=== PATIENT | female | born 1960 | race Caucasian/White ===

== ENCOUNTER 2019-08-15 11:27 | Inpatient (IN) | payer BC ==
[2019-08-15] MEDS ORDERED: NA CHLORIDE 0.9% 1,000 ML ONE ×2 (11:58→13:10)
[2019-08-15 12:44] LABS: Protime INR 1.22
--- NOTE | 2019-08-15 12:44 | RAD REPORT ---
EXAM DESCRIPTION: RAD - Chest Single View - 08/15/2019 12:31 pm CLINICAL HISTORY: COUGH Chest pain. COMPARISON: Chest Pa And Lat (2 Views) dated 08/11/2019 FINDINGS: Portable technique limits examination quality. The patient's known right middle lobe pneumonia shows fractional improvement since the prior study. H owever, there appears to be slight increased infiltrate in the left lung base on today's study relati ve to the prior exam. The heart is normal in size. No displaced fractures.
[2019-08-15 12:45] LABS: Absolute Lymphocytes (CBC) 1.5 K/uL (0.7-4.9); Basophils % 0.8 % (0-1.3); Hematocrit 36.4 % (36.0-45.0); Lymphocytes % 14.1 % (15.3-44.8); MPV 8.4 fL (7.6-11.3); RBC Red Blood Cell Count 3.97 M/uL (3.86-4.86)
[2019-08-15 13:06] LABS: ALT/SGPT 13 U/L (12-78); AST/SGOT 10 U/L (15-37); Albumin 2.8 g/dL (3.4-5.0); Alkaline Phosphatase 98 U/L (45-117); BUN Blood Urea Nitrogen 7 mg/dL (7-18); Bicarbonate 26 mmol/L (21-32); Bilirubin Direct 0.2 mg/dL (0-0.2); Bilirubin Total 0.4 mg/dL (0.2-1.0); Glucose Level 102 mg/dL (74-106); Lipase 243 U/L (73-393); Magnesium 2.2 mg/dL (1.8-2.4); NT PRO-BNP 746 pg/mL (<125); Potassium 3.4 mmol/L (3.5-5.1); Protein, Total 7.1 g/dL (6.4-8.2); Sodium Level 142 mmol/L (136-145); Troponin (Emerg Dept Use Only) < 0.02 ng/mL (0.0-0.045)
[2019-08-15] MEDS ORDERED: HYDROCODONE/CHLORPHEN 5 ML/OSYR ONE (13:09)
[2019-08-15] MEDS ORDERED: PIPER/TAZO/NS 3.375gm 3.375 GM/100 ML BAG ONE (13:10)
--- NOTE | 2019-08-15 13:13 | EDPHYS ---
Physician Documentation [facility] Name: Tamiko Conley Age: 58 yrs Sex: Female : 1960 Arrival Date: 08/15/2019 Time: : Bed 20 Private MD: Mp Pittman B ED Physician Kamari Joe HPI: 08/15 13:03 This 58 yrs old Female presents to ER via Ambulatory with complaints of jaylene Fever, Cough. 13:03 The patient reports fever, that was measured at 100 degrees Fahrenheit. Onset: The jaylene symptoms/episode began/occurred 5 day(s) ago. Modifying factors: there are no obvious modifying factors. Associated signs and symptoms: Pertinent positives: chills, cough, runny nose, sinus congestion. Severity of symptoms: At their worst the symptoms were moderate this morning, in the emergency department the symptoms are worse mildly. The patient has not experienced similar symptoms in the past. Historical: - Allergies: 11:40 meperidine HCl (Vomiting); sv 11:40 Cefoxitin Sodium; sv 11:40 TETRACYCLINES; sv - Immunization history:: Adult Immunizations. - Social history:: Smoking status: . - Ebola Screening: : Patient denies travel to an Ebola-affected area in the 21 days before illness onset. - Family history:: not pertinent. ROS: 13:03 Constitutional: Negative for fever, chills, and weight loss, Eyes: Negative for injury, jaylene pain, redness, and discharge, ENT: Negative for injury, pain, and discharge, Neck: Negative for injury, pain, and swelling, Cardiovascular: Negative for chest pain, palpitations, and edema, Abdomen/GI: Negative for abdominal pain, nausea, vomiting, diarrhea, and constipation, Back: Negative for injury and pain, : Negative for injury, bleeding, discharge, and swelling, MS/Extremity: Negative for injury and deformity, Skin: Negative for injury, rash, and discoloration, Neuro: Negative for headache, weakness, numbness, tingling, and seizure, Psych: Negative for depression, anxiety, suicide ideation, homicidal ideation, and hallucinations, Allergy/Immunology: Negative for hives, rash, and allergies, Endocrine: Negative for neck swelling, polydipsia, polyuria, polyphagia, and marked weight changes, Hematologic/Lymphatic: Negative for swollen nodes, abnormal bleeding, and unusual bruising. 13:03 Respiratory: Positive for cough, "sounds productive", shortness of breath, at rest. Exam: 13:03 Constitutional: This is a well developed, well nourished patient who is awake, alert, jaylene and in no acute distress. Head/Face: Normocephalic, atraumatic. Eyes: Pupils equal round and reactive to light, extra-ocular motions intact. Lids and lashes normal. Conjunctiva and sclera are non-icteric and not injected. Cornea within normal limits. Periorbital areas with no swelling, redness, or edema. ENT: Nares patent. No nasal discharge, no septal abnormalities noted. Tympanic membranes are normal and external auditory canals are clear. Oropharynx with no redness, swelling, or masses, exudates, or evidence of obstruction, uvula midline. Mucous membranes moist. Neck: Trachea midline, no thyromegaly or masses palpated, and no cervical lymphadenopathy. Supple, full range of motion without nuchal rigidity, or vertebral point tenderness. No Meningismus. Chest/axilla: Normal chest wall appearance and motion. Nontender with no deformity. No lesions are appreciated. Cardiovascular: Regular rate and rhythm with a normal S1 and S2. No gallops, murmurs, or rubs. Normal PMI, no JVD. No pulse deficits. Abdomen/GI: Soft, non-tender, with normal bowel sounds. No distension or tympany. No guarding or rebound. No evidence of tenderness throughout. Back: No spinal tenderness. No costovertebral tenderness. Full range of motion. Female : Normal external genitalia. Skin: Warm, dry with normal turgor. Normal color with no rashes, no lesions, and no evidence of cellulitis. MS/ Extremity: Pulses equal, no cyanosis. Neurovascular intact. Full, normal range of motion. Psych: Awake, alert, with orientation to person, place and time. Behavior, mood, and affect are within normal limits. 13:03 Respiratory: mild respiratory distress is noted, Respirations: labored breathing, that is mild, Breath sounds: decreased breath sounds, + upper airway congestion. Respiratory rate: 20 Vital Signs: 11:40 BP 146 / 89; Pulse 100; Resp 20; Temp 98.1(O); Pulse Ox 95% on R/A; Weight 70.31 kg; sv Height 5 ft. 7 in. (170.18 cm); 12:31 BP 130 / 61; Pulse 83; Resp 19; Temp 99.0(O); Pulse Ox 95% on R/A; mh5 12:51 BP 130 / 61; Pulse 79; Resp 17; Pulse Ox 97% on R/A; tw2 13:18 BP 146 / 75; Pulse 86; Resp 17; Temp 98.3(O); Pulse Ox 98% on R/A; tw2 14:39 BP 143 / 72; Pulse 81; Resp 17; Pulse Ox 96% on R/A; tw2 15:51 BP 131 / 74; Pulse 77; Resp 17; Pulse Ox 96% on R/A; tw2 16:56 BP 129 / 70; Pulse 74; Resp 17; Pulse Ox 97% on R/A; tw2 11:40 Body Mass Index 24.28 (70.31 kg, 170.18 cm) sv MDM: 11:45 Patient medically screened. [facility] 13:08 Data reviewed: vital signs, nurses notes, lab test result(s), EKG, radiologic studies, jaylene plain films. 08/15 11:53 Order name: Basic Metabolic Panel; Complete Time: 13:08 [facility] 08/15 11:53 Order name: CBC with Diff; Complete Time: 14:10 [facility] 08/15 11:53 Order name: LFT's; Complete Time: 13:08 [facility] 08/15 11:53 Order name: Magnesium; Complete Time: 13:08 [facility] 08/15 11:53 Order name: NT PRO-BNP; Complete Time: 13:08 [facility] 08/15 11:53 Order name: PT-INR; Complete Time: 13:00 [facility] 08/15 11:54 Order name: Troponin (emerg Dept Use Only); Complete Time: 13:08 [facility] 08/15 11:54 Order name: Blood Culture Adult (2) [facility] 08/15 11:54 Order name: Procalcitonin; Complete Time: 14:10 [facility] 08/15 11:54 Order name: Lactate; Complete Time: 13:08 [facility] 08/15 11:54 Order name: Lipase; Complete Time: 13:08 [facility] 08/15 11:54 Order name: Urine Culture [facility] 08/15 13:03 Order name: Urine Dipstick--Ancillary (enter results); Complete Time: 15:48 08/15 13:03 Order name: Urine --Ancillary (enter results); Complete Time: 15:48 08/15 11:54 Order name: XRAY Chest (1 view); Complete Time: 13:00 [facility] 08/15 11:54 Order name: EKG; Complete Time: 11:55 [facility] 08/15 11:54 Order name: Cardiac monitoring; Complete Time: 11:54 [facility] 08/15 11:54 Order name: EKG - Nurse/Tech; Complete Time: 12:48 [facility] 08/15 11:54 Order name: IV Saline Lock; Complete Time: 12:48 [facility] 08/15 11:54 Order name: Labs collected and sent; Complete Time: 12:48 [facility] 08/15 11:54 Order name: O2 Per Protocol; Complete Time: 11:54 [facility] 08/15 11:54 Order name: O2 Sat Monitoring; Complete Time: 11:54 [facility] 08/15 13:33 Order name: Manual Differential; Complete Time: 14:10 EDMS 08/15 11:54 Order name: Urine Dipstick-Ancillary (obtain specimen); Complete Time: 12:48 [facility] Administered Medications: 12:15 Drug: NS 0.9% 1000 ml Route: IV; Rate: 1 bolus; Site: right forearm; tw2 13:24 Follow up: Response: No adverse reaction; IV Status: Completed infusion; IV Intake: tw2 1000ml 13:20 Drug: Potassium Effervescent Tablet 25 mEq Route: PO; tw2 14:09 Follow up: Response: No adverse reaction tw2 13:24 Drug: NS 0.9% 1000 ml Route: IV; Rate: 125 ml/hr; Site: right forearm; tw2 15:52 Follow up: IV Status: Infusion continued upon admission tw2 13:24 Drug: Tussionex Pennkinetic ER 5 ml Route: PO; tw2 14:12 Follow up: Response: No adverse reaction tw2 13:25 Drug: Zosyn 3.375 grams Route: IVPB; Infused Over: 60 mins; Site: right forearm; tw2 14:12 Follow up: Response: No adverse reaction; IV Status: Completed infusion tw2 14:12 Drug: levofloxacin 250 mg Volume: 50 ml; Route: IVPB; Infused Over: 60 mins; Site: tw2 right forearm; 15:12 Follow up: Response: No adverse reaction; IV Status: Completed infusion tw2 14:17 Drug: Tylenol 1000 mg Route: PO; tw2 15:52 Follow up: Response: No adverse reaction tw2 Disposition: 08/15/19 13:11 Hospitalization ordered by Yulia Crespo for Inpatient Admission. Preliminary diagnosis are Fever, unspecified, Pneumonia due to other specified bacteria - bilateral , Hypokalemia, Urinary tract infection, site not specified, Bandemia. - Bed requested for Telemetry/MedSurg (Inpatient). - Status is Inpatient Admission. tw2 - Condition is Fair. - Problem is new. - Symptoms have improved. UTI on Admission? Yes Signatures: Dispatcher [employer] EDMS Nikia Nina RN RN sv Woody, Diana, RN RN dw Anderson, Corey, MD MD cha Wise, Tara, RN RN tw2 Corrections: (The following items were deleted from the chart) 13:16 13:11 Hospitalization Ordered by Yulia Crespo MD for Inpatient Admission. Preliminary [facility] diagnosis is Fever, unspecified; Pneumonia due to other specified bacteria - bilateral ; Hypokalemia. Bed requested for Telemetry/MedSurg (Inpatient). Status is Inpatient Admission. Condition is Fair. Problem is new. Symptoms have improved. UTI on Admission? No. jaylene 13:16 13:16 08/15/2019 13:11 Hospitalization Ordered by Yulia Crespo MD for Inpatient jaylene Admission. Preliminary diagnosis is Fever, unspecified; Pneumonia due to other specified bacteria - bilateral ; Hypokalemia; Urinary tract infection, site not specified. Bed requested for Telemetry/MedSurg (Inpatient). Status is Inpatient Admission. Condition is Fair. Problem is new. Symptoms have improved. UTI on Admission? No. jaylene 14:11 13:16 08/15/2019 13:11 Hospitalization Ordered by Yulia Crespo MD for Inpatient jaylene Admission. Preliminary diagnosis is Fever, unspecified; Pneumonia due to other specified bacteria - bilateral ; Hypokalemia; Urinary tract infection, site not specified. Bed requested for Telemetry/MedSurg (Inpatient). Status is Inpatient Admission. Condition is Fair. Problem is new. Symptoms have improved. UTI on Admission? Yes. jaylene 16:02 14:11 08/15/2019 13:11 Hospitalization Ordered by Yulia Crespo MD for Inpatient dw Admission. Preliminary diagnosis is Fever, unspecified; Pneumonia due to other specified bacteria - bilateral ; Hypokalemia; Urinary tract infection, site not specified; Bandemia. Bed requested for Telemetry/MedSurg (Inpatient). Status is Inpatient Admission. Condition is Fair. Problem is new. Symptoms have improved. UTI on Admission? Yes. [facility] 17:08 16:02 08/15/2019 13:11 Hospitalization Ordered by Yulia Crespo MD for Inpatient tw2 Admission. Preliminary diagnosis is Fever, unspecified; Pneumonia due to other specified bacteria - bilateral ; Hypokalemia; Urinary tract infection, site not specified; Bandemia. Bed requested for Telemetry/MedSurg (Inpatient). Status is Inpatient Admission. Condition is Fair. Problem is new. Symptoms have improved. UTI on Admission? Yes. dw
--- NOTE | 2019-08-15 13:13 | ER ---
Nurse's Notes [facility] Name: Tamiko Conley Age: 58 yrs Sex: Female : 1960 Arrival Date: 08/15/2019 Time: 11:29 Bed 20 Private MD: Mp Pittman B Diagnosis: Fever, unspecified;Pneumonia due to other specified bacteria-bilateral ;Hypokalemia;Urinary tract infection, site not specified;Bandemia Presentation: 08/15 11:38 Presenting complaint: Patient states: cold symptoms started a couple of weeks ago, a sv week ago started with a fever. Saw PCP Wednesday CXR (RML pneumonia) started on Levaquin. Symptoms have not improved. Transition of care: patient was not received from another setting of care. Onset of symptoms was July 2019. Risk Assessment: Do you want to hurt yourself or someone else? Patient reports no desire to harm self or others. Care prior to arrival: Medication(s) given: Motrin, taken at 0900. 11:38 Method Of Arrival: Ambulatory sv 11:38 Acuity: ADRIAN 3 sv 11:44 Initial Sepsis Screen: Does the patient meet any 2 criteria? No. Patient's initial tw2 sepsis screen is negative. Does the patient have a suspected source of infection? No. Patient's initial sepsis screen is negative. Triage Assessment: 11:45 General: Appears Behavior is calm, cooperative, appropriate for age. Pain: Denies pain. tw2 Historical: - Allergies: 11:40 meperidine HCl (Vomiting); sv 11:40 Cefoxitin Sodium; sv 11:40 TETRACYCLINES; sv - Immunization history:: Adult Immunizations. - Social history:: Smoking status: . - Ebola Screening: : Patient denies travel to an Ebola-affected area in the 21 days before illness onset. - Family history:: not pertinent. Screenin:44 Abuse screen: Denies threats or abuse. Nutritional screening: No deficits noted. tw2 Tuberculosis screening: No symptoms or risk factors identified. Fall Risk None identified. Assessment: 12:15 General: Appears in no apparent distress. Behavior is calm, cooperative, appropriate tw2 for age. Pain: Denies pain. Neuro: Level of Consciousness is awake, alert, obeys commands, Oriented to person, place, time, situation. Cardiovascular: Heart tones S1 S2 Patient's skin is warm and dry. Respiratory: Reports cough that is dry, persistent "the shortness of breath feels better though so i think the pneumonia is going away but this cough i just cant get over it". GI: No signs and/or symptoms were reported involving the gastrointestinal system. Abdomen is flat, Bowel sounds present X 4 quads. : No signs and/or symptoms were reported regarding the genitourinary system. EENT: Reports nasal congestion nasal discharge. Derm: No signs and/or symptoms reported regarding the dermatologic system. Musculoskeletal: Range of motion: intact in all extremities. 12:51 Reassessment: Patient appears in no apparent distress at this time. No changes from tw2 previously documented assessment. Patient and/or family updated on plan of care and expected duration. Pain level reassessed. Patient is alert, oriented x 3, equal unlabored respirations, skin warm/dry/pink. 13:30 Reassessment: Patient appears in no apparent distress at this time. No changes from tw2 previously documented assessment. Patient and/or family updated on plan of care and expected duration. Pain level reassessed. Patient is alert, oriented x 3, equal unlabored respirations, skin warm/dry/pink. 14:38 Reassessment: Patient appears in no apparent distress at this time. No changes from tw2 previously documented assessment. Patient and/or family updated on plan of care and expected duration. Pain level reassessed. Patient is alert, oriented x 3, equal unlabored respirations, skin warm/dry/pink. 15:51 Reassessment: Patient appears in no apparent distress at this time. No changes from tw2 previously documented assessment. Patient and/or family updated on plan of care and expected duration. Pain level reassessed. Patient is alert, oriented x 3, equal unlabored respirations, skin warm/dry/pink. 16:56 Reassessment: Patient appears in no apparent distress at this time. No changes from tw2 previously documented assessment. Patient and/or family updated on plan of care and expected duration. Pain level reassessed. Patient is alert, oriented x 3, equal unlabored respirations, skin warm/dry/pink. Vital Signs: 11:40 BP 146 / 89; Pulse 100; Resp 20; Temp 98.1(O); Pulse Ox 95% on R/A; Weight 70.31 kg; sv Height 5 ft. 7 in. (170.18 cm); 12:31 BP 130 / 61; Pulse 83; Resp 19; Temp 99.0(O); Pulse Ox 95% on R/A; mh5 12:51 BP 130 / 61; Pulse 79; Resp 17; Pulse Ox 97% on R/A; tw2 13:18 BP 146 / 75; Pulse 86; Resp 17; Temp 98.3(O); Pulse Ox 98% on R/A; tw2 14:39 BP 143 / 72; Pulse 81; Resp 17; Pulse Ox 96% on R/A; tw2 15:51 BP 131 / 74; Pulse 77; Resp 17; Pulse Ox 96% on R/A; tw2 16:56 BP 129 / 70; Pulse 74; Resp 17; Pulse Ox 97% on R/A; tw2 11:40 Body Mass Index 24.28 (70.31 kg, 170.18 cm) sv ED Course: 11:29 Patient arrived in ED. rg4 11:29 Mp Pittman MD is Private Physician. rg4 11:39 Triage completed. sv 11:42 Arm band placed on. sv 11:44 Michelle Clarke, RITU is Primary Nurse. tw2 11:45 Kamari Joe MD is Attending Physician. jaylene 11:45 Call light in reach. Side rails up X 1. tw2 12:15 Inserted saline lock: 22 gauge in right forearm, using aseptic technique. Blood tw2 collected. 12:31 Urine collected: clean catch specimen, clear. mh5 12:32 XRAY Chest (1 view) In Process Unspecified. EDMS 12:32 Patient has correct armband on for positive identification. Placed in gown. Bed in low mh5 position. Call light in reach. Side rails up X 1. Adult w/ patient. youth nutritional monitor on. Pulse ox on. NIBP on. 13:09 Yulia Crespo MD is Hospitalizing Provider. jaylene 14:40 No provider procedures requiring assistance completed. Patient admitted, IV remains in tw2 place. 16:09 Awaiting: unsuccessful attempt to call report at this time. tw2 Administered Medications: 12:15 Drug: NS 0.9% 1000 ml Route: IV; Rate: 1 bolus; Site: right forearm; tw2 13:24 Follow up: Response: No adverse reaction; IV Status: Completed infusion; IV Intake: tw2 1000ml 13:20 Drug: Potassium Effervescent Tablet 25 mEq Route: PO; tw2 14:09 Follow up: Response: No adverse reaction tw2 13:24 Drug: NS 0.9% 1000 ml Route: IV; Rate: 125 ml/hr; Site: right forearm; tw2 15:52 Follow up: IV Status: Infusion continued upon admission tw2 13:24 Drug: Tussionex Pennkinetic ER 5 ml Route: PO; tw2 14:12 Follow up: Response: No adverse reaction tw2 13:25 Drug: Zosyn 3.375 grams Route: IVPB; Infused Over: 60 mins; Site: right forearm; tw2 14:12 Follow up: Response: No adverse reaction; IV Status: Completed infusion tw2 14:12 Drug: levofloxacin 250 mg Volume: 50 ml; Route: IVPB; Infused Over: 60 mins; Site: tw2 right forearm; 15:12 Follow up: Response: No adverse reaction; IV Status: Completed infusion tw2 14:17 Drug: Tylenol 1000 mg Route: PO; tw2 15:52 Follow up: Response: No adverse reaction tw2 Intake: 13:24 IV: 1000ml; Total: 1000ml. tw2 Outcome: 13:11 Decision to Hospitalize by Provider. jaylene 16:55 Admitted to Med/surg accompanied by tech, via wheelchair, room 423, with chart, Report tw2 called to RITU Coffman 16:55 Condition: stable 16:55 Instructed on the need for admit. 17:08 Patient left the ED. tw2 Signatures: Dispatcher [employer] Nikia Steen RN RN sv Anderson, Corey, MD MD cha Wise, Tara, RN RN 2 Lori Krause Maria [facility] Corrections: (The following items were deleted from the chart) 11:41 11:38 Care prior to arrival: None. sv 11:42 11:40 BP 146 / 89; Pulse 100bpm; Resp 20bpm; Pulse Ox 95% RA; Temp 98.1F Oral; sv sv 14:39 13:18 BP 146 / 75; Pulse 86bpm; Resp 17bpm; Pulse Ox 98% RA; mh5 tw2
[2019-08-15] MEDS ORDERED: POTASSIUM 25 MEQ EFFERV TAB ONE (13:14)
[2019-08-15] MEDS ORDERED: Levofloxacin 250mg IV 250 MG/50 ML BAG IV ONE (13:30)
[2019-08-15 13:32] LABS: Blood Morphology Comment NOT SEEN (NOT SEEN); Platelet Estimate ADEQ
[2019-08-15 14:16] LABS: Urine Blood NEGATIVE (NEG); Urine Glucose NEGATIVE (NEG); Urine Protein NEGATIVE (NEG); Urine pH 6.5 (5.0-7.0)
[2019-08-15] MEDS ORDERED: ACETAMINOPHEN 500 MG TAB ONE (14:17)
--- NOTE | 2019-08-15 16:50 | P.HP ---
Certification for Inpatient Patient admitted to: Inpatient With expected LOS: >2 Midnights Patient will require the following post-hospital care: None Practitioner: I am a practitioner with admitting privileges, knowledge of patient current condition, hospital course, and medical plan of care. Services: Services provided to patient in accordance with Admission requirements found in Title 42 Section 412.3 of the Code of Federal Regulations Patient History Date of Service: 08/15/19 Primary Care Provider: Dr Pittman Reason for admission: PNA History of Present Illness: 58 y/o F with no pmhx Presented to the ED with c/o of fever, cough, congestion and sinus pressure. Pt was recently seen by PCP for PNA and prescribed abx last wednesday. She However did not have any improvement and thus decided to come to the ER for further care. Pt states she had low grade fever this AM. + productive cough. Denies SOB, CP, N/V or diarrhea. Allergies cefoxitin sodium [From Mefoxin] Allergy (Verified 01/17/14 17:00) Hives/Rash clindamycin HCl [From Cleocin] Allergy (Verified 01/17/14 17:00) Hives/Rash clindamycin palmitate HCl [From Cleocin] Allergy (Verified 01/17/14 17:00) Hives/Rash clindamycin phosphate [From Cleocin] Allergy (Verified 01/17/14 17:00) Hives/Rash meperidine HCl [From Demerol] Allergy (Verified 01/17/14 17:00) Nausea/Vomiting Tetracyclines Allergy (Verified 01/17/14 17:00) Hives/Rash Home Medications: Omeprazole [Prilosec] 40 mg PO DAILY 08/15/19 Rosuvastatin [Crestor] 10 mg PO BEDTIME 08/15/19 levoFLOXacin [Levofloxacin] 500 mg PO DAILY 08/15/19 - Past Medical/Surgical History Has patient received pneumonia vaccine in the past: Yes Diabetic: No Past Medical History: Reviewed- Non-Contributory Past Surgical History: Reviewed- Non-Contributory -: appendectomy -: tonsillectomy -: left salphingooopherectomy - Family History Family History: Reviewed- Non-Contributory - Social History Smoking Status: Never smoker Counseled patient to stop smoking for: less than 10 minutes Smoking therapy provided: No Patient receptive to therapy: No Alcohol use: No CD- Drugs: No Caffeine use: Yes Place of Residence: Home Review of Systems 10-point ROS is otherwise unremarkable Physical Examination - Physical Exam General: Alert, In no apparent distress HEENT: Atraumatic, PERRLA, Mucous membr. moist/pink, EOMI, Sclerae nonicteric Neck: Supple, 2+ carotid pulse no bruit, No LAD, Without JVD or thyroid abnormality Respiratory: Normal air movement, Rhonchi/gurgles Cardiovascular: Regular rate/rhythm, Normal S1 S2 Gastrointestinal: Normal bowel sounds, No tenderness Musculoskeletal: No tenderness Integumentary: No rashes Neurological: Normal gait, Normal speech, Normal strength at 5/5 x4 extr, Normal tone, Normal affect Lymphatics: No axilla or inguinal lymphadenopathy - Studies Laboratory Data (last 24 hrs) 08/15/19 12:15: PT 14.3 H, INR 1.22 08/15/19 12:15: WBC 10.4, Hgb 12.9, Hct 36.4, Plt Count 504 H 08/15/19 12:15: Sodium 142, Potassium 3.4 L, BUN 7, Creatinine 0.68, Glucose 102 , Magnesium 2.2, Total Bilirubin 0.4, AST 10 L, ALT 13, Alkaline Phosphatase 98 , Lipase 243 Assessment and Plan - Problems (Diagnosis) (1) PNA (pneumonia) Current Visit: Yes Status: Acute Plan: Pt with Fever, Cough, sinus congestion with Failed outpt Therapy for PNA -Xray with Right and Left sided PNA -Started on IV levaquin -Sputum Culture pending at this time -Will monitor closely Qualifiers: Pneumonia type: due to unspecified organism Laterality: left Lung location: lower lobe of lung Qualified Code(s): J18.1 - Lobar pneumonia, unspecified organism - Plan Admit to the Med surg for further care. IV abx and fluids Discharge Plan: Home Plan to discharge in: Greater than 2 days - Advance Directives Does patient have a Living Will: No Does patient have a Durable POA for Healthcare: No - Code Status/Comfort Care Code Status Assessed: Yes Critical Care: No
[2019-08-15] MEDS ORDERED: Levofloxacin500mg IV 500 MG/100 ML BAG IV SCH (17:00)
[2019-08-15 17:33] VITALS: BMI 24.0
--- NOTE | 2019-08-15 17:52 | RAD REPORT ---
EXAM DESCRIPTION: CT - Thorax Wo Con CLINICAL HISTORY: Chest pain PNA COMPARISON: Chest Single View dated 08/15/2019; Chest Pa And Lat (2 Views) dated 08/11/2019 FINDINGS: Moderate airspace consolidation with air bronchograms seen in the right middle lobe. Mild ground-glass opacity is seen in the right lower lobe as well. Linear subsegmental atelectasis is pres ent in the left base. Posterior left upper lobe mild ground-glass opacities are seen as well. Small r ight pleural effusion. No pneumothorax. No axillary, mediastinal or hilar adenopathy. No concerning bony finding. No gross upper abdominal finding. All CT scans are performed using dose optimization technique as appropriate and may include automated exposure control or mA/KV adjustment according to patient size. IMPRESSION: Moderate right middle lobe bronchopneumonia.Additional less severe areas of pneumonic in filtrate are seen in the right lower lobe, posterior segment left upper lobe. Linear atelectasis is p resent in the left lung base.
[2019-08-15] MEDS: Levofloxacin500mg IV 500 MG/100 ML BAG IV SCH ×2 (18:00→19:58)
[2019-08-15] MEDS: GUAIFENESIN/CODEINE 5ML UCUP PO PRN (18:45)
[2019-08-15] MEDS: NA CHLORIDE 0.9% 1,000 ML IV SCH (18:52)
[2019-08-15] MEDS: ACETAMINOPHEN 325 MG TABLET PO PRN (19:57)
[2019-08-15] MEDS: PIPER/TAZO/NS 3.375gm 3.375 GM/100 ML BAG IVPB SCH (19:58)
[2019-08-15] MEDS ORDERED: GUAIFENESIN 600 MG SA TAB PO SCH (21:00)
[2019-08-16] MEDS: GUAIFENESIN/CODEINE 5ML UCUP PO PRN ×4 (00:45→22:20)
[2019-08-16] MEDS: NA CHLORIDE 0.9% 1,000 ML IV SCH ×2 (00:45→10:00)
[2019-08-16] MEDS: ACETAMINOPHEN 325 MG TABLET PO PRN ×2 (03:11→10:13)
[2019-08-16] MEDS: PIPER/TAZO/NS 3.375gm 3.375 GM/100 ML BAG IVPB SCH ×3 (03:15→21:08)
[2019-08-16 06:19] LABS: Albumin 2.3 g/dL (3.4-5.0); Bilirubin Total 0.3 mg/dL (0.2-1.0); Potassium 3.9 mmol/L (3.5-5.1); Protein, Total 5.7 g/dL (6.4-8.2)
[2019-08-16 06:27] LABS: Absolute Lymphocytes (CBC) 1.4 K/uL (0.7-4.9); Hematocrit 32.1 % (36.0-45.0); Lymphocytes % 15.3 % (15.3-44.8); MPV 8.2 fL (7.6-11.3); RBC Red Blood Cell Count 3.49 M/uL (3.86-4.86)
[2019-08-16] MEDS ORDERED: POTASSIUM 25 MEQ EFFERV TAB PO ONE (09:00)
[2019-08-16] MEDS: ENOXAPARIN 40 MG/0.4 ML SQ SCH (09:22)
[2019-08-16] MEDS ORDERED: POTASSIUM CL SA 10 MEQ TAB PO ONE (09:23)
--- NOTE | 2019-08-16 09:26 | EKG ---
Test Date: 2019-08-15 Test Time: 12:11:33 Public Message Service Supervisor: PREETI/Farhan MEASUREMENT RESULTS: Intervals: Rate: 87 AL: 146 QRSD: 76 QT: 404 QTc: 486 [place]: P: 62 AL: 146 QRS: 23 T: 33 INTERPRETIVE STATEMENTS: Normal sinus rhythm Nonspecific ST abnormality Prolonged QT Abnormal ECG No previous ECG available for comparison Electronically Signed On 08-16-19 09:24:16 CDT by Delfino Harper
[2019-08-16] MEDS ORDERED: ONDANSETRON 4 MG/2 ML VIAL IV PRN (09:46)
[2019-08-16] MEDS: TOPIRAMATE 25 MG TAB PO PRN (11:37)
[2019-08-16] MEDS: BENZONATATE 100 MG CAP PO PRN ×2 (11:37→18:08)
--- NOTE | 2019-08-16 12:35 | P.PN ---
Subjective Date of Service: 08/16/19 Primary Care Provider: Dr Pittman Chief Complaint: PNA Review of Systems 10-point ROS is otherwise unremarkable Physical Examination - Vital Signs Temperature: 97.6 F Blood Pressure: 136/73 Pulse: 81 Respirations: 16 Pulse Ox (%): 92 - Physical Exam General: Alert, In no apparent distress HEENT: Atraumatic, PERRLA, EOMI Neck: Supple, JVD not distended Respiratory: Normal air movement, Rhonchi/gurgles Cardiovascular: Regular rate/rhythm, Normal S1 S2 Gastrointestinal: Normal bowel sounds, No tenderness Musculoskeletal: No tenderness Integumentary: No rashes Neurological: Normal speech, Normal tone, Normal affect Lymphatics: No axilla or inguinal lymphadenopathy - Studies Laboratory Data (last 24 hrs) 08/15/19 12:15: PT 14.3 H, INR 1.22 08/15/19 12:15: WBC 10.4, Hgb 12.9, Hct 36.4, Plt Count 504 H 08/15/19 12:15: Sodium 142, Potassium 3.4 L, BUN 7, Creatinine 0.68, Glucose 102 , Magnesium 2.2, Total Bilirubin 0.4, AST 10 L, ALT 13, Alkaline Phosphatase 98 , Lipase 243 Medications List Reviewed: Yes Assessment And Plan - Current Problems (Diagnosis) (1) PNA (pneumonia) Current Visit: Yes Status: Acute Plan: Pt with Fever, Cough, sinus congestion with Failed outpt Therapy for PNA -Xray with Right and Left sided PNA -chest CT with right sided middle lobe pneumonia -Started on IV levaquin and Zosyn -Sputum Culture pending at this time -Will monitor closely Qualifiers: Pneumonia type: due to unspecified organism Laterality: left Lung location: lower lobe of lung Qualified Code(s): J18.1 - Lobar pneumonia, unspecified organism - Plan Pending clinical improvement at this time Discharge Plan: Home Plan to discharge in: 48 Hours - Code Status/Comfort Care Code Status Assessed: Yes Code Status: Full Code Critical Care: No
[2019-08-16] MEDS: Levofloxacin500mg IV 500 MG/100 ML BAG IV SCH (17:04)
[2019-08-16] MEDS ORDERED: NA CHLORIDE 0.9% 0 ML ONE (23:49)
[2019-08-17] MEDS: TOPIRAMATE 25 MG TAB PO PRN (01:10)
[2019-08-17] MEDS: BENZONATATE 100 MG CAP PO PRN ×2 (01:10→09:16)
[2019-08-17] MEDS: GUAIFENESIN/CODEINE 5ML UCUP PO PRN (03:59)
[2019-08-17] MEDS: PIPER/TAZO/NS 3.375gm 3.375 GM/100 ML BAG IVPB SCH ×2 (03:59→12:00)
[2019-08-17 04:19] LABS: Absolute Lymphocytes (CBC) 1.9 K/uL (0.7-4.9); Basophils % 2.1 % (0-1.3); Hematocrit 35.7 % (36.0-45.0); Lymphocytes % 21.3 % (15.3-44.8); MPV 7.5 fL (7.6-11.3); RBC Red Blood Cell Count 3.85 M/uL (3.86-4.86)
[2019-08-17 04:20] VITALS: O2SAT 93
[2019-08-17 04:33] LABS: Albumin 2.6 g/dL (3.4-5.0); Bilirubin Total 0.3 mg/dL (0.2-1.0); Potassium 4.1 mmol/L (3.5-5.1); Protein, Total 6.1 g/dL (6.4-8.2)
[2019-08-17] MEDS ORDERED: ARFORMOTEROL TARTRATE 15 MCG/2 ML VIAL.NEB NEB SCH (08:11)
[2019-08-17] MEDS ORDERED: KETOROLAC 30 MG/ML INJ IV PRN (08:12)
--- NOTE | 2019-08-17 08:14 | P.CNS ---
Date of Consult: 08/17/19 Primary Care Provider: Dr Pittman Chief Complaint: Pneumonia History of Present Illness: Patient is 58 years of age felt sick about 4 weeks ago started having some upper respiratory flu-like symptoms and then developed high fever was treated with levofloxacin did get any better started complaining of right-sided pleuritic chest pain and appeared in the hospital was diagnosed to have right middle lobe pneumonia still having some chest pain slight shortness of breath former smoker quit a long time ago no prior history of COPD has some barking cough Allergies cefoxitin sodium [From Mefoxin] Allergy (Verified 08/15/19 17:40) Hives/Rash meperidine HCl [From Demerol] Allergy (Verified 08/15/19 17:40) Nausea/Vomiting Tetracyclines Allergy (Verified 08/15/19 17:40) Hives/Rash Home Medications: Omeprazole [Prilosec] 40 mg PO DAILY 08/15/19 Rosuvastatin [Crestor] 10 mg PO BEDTIME 08/15/19 levoFLOXacin [Levofloxacin] 500 mg PO DAILY 08/15/19 - Past Medical/Surgical History Diabetic: No -: HLD -: ACID REFLEX -: appendectomy -: tonsillectomy -: left salphingooopherectomy - Social History Smoking Status: Never smoker Alcohol use: No CD- Drugs: No Caffeine use: Yes Place of Residence: Home Review of Systems General: Weakness Respiratory: Cough, Shortness of Breath Cardiovascular: Chest Pain Physical Examination Temp Pulse Resp BP Pulse Ox 97.3 F 96 H 17 134/75 92 08/17/19 08:00 08/17/19 08:00 08/17/19 08:00 08/17/19 08:00 08/17/19 08:00 General: Alert, Oriented x3 Neck: Supple Respiratory: Clear to auscultation bilaterally, Crackles/rales (Crackles on the right side) Cardiovascular: No edema, Regular rate/rhythm, Normal S1 S2 - Problems (1) PNA (pneumonia) Current Visit: Yes Status: Acute Plan: Patient is 58 years of age former smoker admitted with flu-like illness followed by fever right-sided pleuritic chest pain complaining of cough she does have a right middle lobe consolidation white count is normal vital signs are stable slight fever since admission she has had level Floxin for at least 7 days for resistant infection I have added some of prednisone and Toradol for a pleuritic chest pain oxygenation satisfactory at a bronchodilator she may have underlying obstructive airways disease former heavy smoker possible discharge tomorrow another week or so of Levaquin and white count is normal continue with low-dose prednisone 10 mg twice a day and a bronchodilator follow up with me in 2 weeks
[2019-08-17] MEDS: ENOXAPARIN 40 MG/0.4 ML SQ SCH (09:00)
[2019-08-17] MEDS ORDERED: predniSONE 20 MG TAB PO SCH (09:00)
[2019-08-17 12:34] VITALS: BP 127/64; TEMP 98.3
[2019-08-17] MEDS ORDERED: IPRATROPIUM BROM 0.5MG/2.5ML NEB SCH (14:00)
--- NOTE | 2019-08-17 14:30 | P.DS ---
Admission Date: 08/15/19 Discharge Date: 08/17/19 Primary Care Provider: Dr Pittman Disposition: ROUTINE DISCHARGE Discharge Condition: GOOD Reason for Admission: Pneumonia - Problems (1) PNA (pneumonia) Current Visit: Yes Status: Acute Qualifiers: Pneumonia type: due to unspecified organism Laterality: left Lung location: lower lobe of lung Qualified Code(s): J18.1 - Lobar pneumonia, unspecified organism Brief History of Present Illness: 58 y/o F with no pmhx Presented to the ED with c/o of fever, cough, congestion and sinus pressure. Pt was recently seen by PCP for PNA and prescribed abx last wednesday. She However did not have any improvement and thus decided to come to the ER for further care. Pt states she had low grade fever this AM. + productive cough. Denies SOB, CP, N/V or diarrhea. Hospital Course: Overall During hospital stay pt remained stable Pt was admitted to the hospital for Failed outpt therapy PNA. Cxray and Ct chest was consistent with Right middle lobe PNA. She was astarted on IV abx here. Pulmonlogy was consulted. Pt had improvement in her symptom and thus was DC home under stable condition. Blood culture and Sputum Culture were done which remained negative and thus pt was DC home. Asked to F.u with Pulm and PCP. Given ppx for Levaqin for 7 days Vital Signs/Physical Exam: Temp Pulse Resp BP Pulse Ox 98.3 F 93 H 16 127/64 94 08/17/19 12:00 08/17/19 12:00 08/17/19 12:00 08/17/19 12:00 08/17/19 12:00 General: Alert, In no apparent distress HEENT: Atraumatic, PERRLA, EOMI Neck: Supple, JVD not distended Respiratory: Clear to auscultation bilaterally, Normal air movement Cardiovascular: Regular rate/rhythm, Normal S1 S2 Gastrointestinal: Normal bowel sounds, No tenderness Musculoskeletal: No tenderness Integumentary: No rashes Neurological: Normal speech, Normal tone, Normal affect Lymphatics: No axilla or inguinal lymphadenopathy Laboratory Data at Discharge: WBC 9.0 K/uL (4.3-10.9) 08/17/19 04:00 Hgb 12.2 g/dL (12.0-15.0) 08/17/19 04:00 Hct 35.7 % (36.0-45.0) L 08/17/19 04:00 Plt Count 530 K/uL (152-406) H 08/17/19 04:00 PT 14.3 SECONDS (9.5-12.5) H 08/15/19 12:15 INR 1.22 08/15/19 12:15 Sodium 137 mmol/L (136-145) 08/17/19 04:00 Potassium 4.1 mmol/L (3.5-5.1) 08/17/19 04:00 BUN 8 mg/dL (7-18) 08/17/19 04:00 Creatinine 0.80 mg/dL (0.55-1.3) 08/17/19 04:00 Glucose 109 mg/dL (74-106) H 08/17/19 04:00 Magnesium 2.2 mg/dL (1.8-2.4) 08/15/19 12:15 Total Bilirubin 0.3 mg/dL (0.2-1.0) 08/17/19 04:00 AST 8 U/L (15-37) L 08/17/19 04:00 ALT 12 U/L (12-78) 08/17/19 04:00 Alkaline Phosphatase 80 U/L (45-117) 08/17/19 04:00 Lipase 243 U/L (73-393) 08/15/19 12:15 Home Medications: Omeprazole [Prilosec] 40 mg PO DAILY 08/15/19 Rosuvastatin [Crestor*] 10 mg PO BEDTIME 08/15/19 levoFLOXacin [Levofloxacin] 500 mg PO DAILY #7 tablet 08/17/19 predniSONE [Prednisone*] 20 mg PO BID #10 tab 08/17/19 New Medications: levoFLOXacin [Levofloxacin] 500 mg PO DAILY #7 tablet predniSONE [Prednisone*] 20 mg PO BID #10 tab Diet: Regular Activity: Ad arvin Followup: Solo Mendoza MD [ACTIVE - CAN ADMIT] - (call to schedule appointment) Mp Pittman MD [Primary Care Provider] - (call to schedule appointment)
== END 2019-08-17 15:56 | disposition home or self-care (01) | DRG 195 ==
LOC: ER 11:27 → ERHOLD 14:07 → 4TH 16:56
PROVIDERS: ADMIT Family Medicine; ATTEND Family Medicine
DX: J18.1 Lobar pneumonia, unspecified organism (principal); Z87.891 Personal history of nicotine dependence
CPT/HCPCS: 36415; 71045; 71250; 80048; 80053; 80076; 81003; 81025; 83605; 83690; 83735; 83880; 84145; 84484; 85025; 85610; 87040; 87086; 87088; 87804; 93005; 94640; 96361; 96365; 96367; 99285; J1650; J2405; J2543; J7030; J7512; J7605